=== PATIENT | female | born 1945 | race Caucasian/White ===

== ENCOUNTER → 2017-05-14 | Outpatient (CLI) | payer MEDICARE | LOC: M RAD 16:25 | PROVIDERS: ATTEND Internal Medicine | DX: Z12.31 Encounter for screening mammogram for malignant neoplasm of breast (principal) ==

== ENCOUNTER → 2022-08-04 | Outpatient (CLI) | payer MEDICARE ==
[~2022-08-04] MED LIST: CALC600C3 PO; CEPH500C PO; ERGO500029 PO; LEVO125T4 PO; OMEP40CA4 PO; RA N1TAB PO; THERTAB52 PO; [UNRECOGNIZED DRUG - CODE] PO
== END ==
LOC: M WHC 08:36
PROVIDERS: ATTEND Nurse Practitioner Family
DX: Z12.31 Encounter for screening mammogram for malignant neoplasm of breast (principal)